=== PATIENT | female | born 1950 | race African-American/Black ===

== ENCOUNTER 2017-02-13 21:20 | Emergency (ER) | payer MEDICARE, OTHER ==
[2017-02-13] MEDS ORDERED: CYCLOBENZAPRINE HCL 10 MG TABLET PO ONE (23:59)
[2017-02-13] MEDS ORDERED: IBUPROFEN 600 MG TABLET PO ONE (23:59)
--- NOTE | 2017-02-13 23:59 | ER Document Report ---
ED Extremity Problem, Lower - General Chief Complaint: Leg Pain Stated Complaint: RIGHT LEG PAIN Time Seen by Provider: 02/13/17 23:25 Mode of Arrival: Ambulatory Information source: Patient Notes: Patient is a 66-year-old female who presents to the ER today for right-sided sciatica pain radiating down the back of her right leg. Patient says she has had sciatica before and that this feels exactly like that to her. She states that she has never had it this bad though, she denies any recent injury but states that she does have chronic low back pain from an injury in 1994. She has not been taking anything at home for the pain because she states that usually with her sciatica she is able to just walk and do exercises and that relieves it. She has never taken anything for sciatica pain. She denies any numbness or tingling. TRAVEL OUTSIDE OF THE [place] IN LAST 30 DAYS: No - Related Data Allergies/Adverse Reactions: codeine Allergy (Verified 02/13/17 22:03) Sulfa (Sulfonamide Antibiotics) Allergy (Verified 02/13/17 22:03) Past Medical History - General Information source: Patient - Social History Smoking Status: Unknown if Ever Smoked Family History: Reviewed & Not Pertinent Patient has suicidal ideation: No Patient has homicidal ideation: No Renal/ Medical History: Denies: Hx Peritoneal Dialysis Review of Systems - Review of Systems Constitutional: No symptoms reported EENT: No symptoms reported Cardiovascular: No symptoms reported Respiratory: No symptoms reported Gastrointestinal: No symptoms reported Genitourinary: No symptoms reported Female Genitourinary: No symptoms reported Musculoskeletal: See HPI Skin: No symptoms reported Hematologic/Lymphatic: No symptoms reported Neurological/Psychological: No symptoms reported Physical Exam - Vital signs Vitals: Temp Pulse Resp BP Pulse Ox 98.8 F 73 18 162/79 H 96 02/13/17 21:56 02/13/17 21:56 02/13/17 21:56 02/13/17 21:56 02/13/17 21:56 - Notes Notes: PHYSICAL EXAMINATION: GENERAL: Uncomfortable, lying on left side in the bed, in no acute distress. HEAD: Atraumatic, normocephalic. EYES: Pupils equal round and reactive to light, extraocular movements intact, sclera anicteric, conjunctiva are normal. NECK: Normal range of motion, supple without lymphadenopathy LUNGS: CTAB and equal. No wheezes rales or rhonchi. HEART: Regular rate and rhythm without murmurs ABDOMEN: Soft, no tenderness. No guarding, no rebound BACK: Right SI joint tenderness, no vertebral tenderness GI/: no CVA tenderness EXTREMITIES: Decreased range of motion at the right hip secondary to pain, no pitting edema. No cyanosis. NEUROLOGICAL: Cranial nerves grossly intact. Normal sensory/motor exams. PSYCH: Normal mood, normal affect. SKIN: Warm, Dry, normal turgor, no rashes or lesions noted Course - Re-evaluation Re-evalutation: 02/14/17 06:13 Patient [address] and has to drive home, I did order muscle relaxer for her but she will take it when she gets home. - Vital Signs Vital signs: Temp Pulse Resp BP Pulse Ox 98.1 F 72 18 158/68 H 99 02/14/17 00:14 02/14/17 00:14 02/14/17 00:14 02/14/17 00:14 02/14/17 00:14 Discharge - Discharge Clinical Impression: Sciatica, right side Condition: Stable Disposition: HOME, SELF-CARE Additional Instructions: Return immediately for any new or worsening symptoms. Follow up with primary care provider, call tomorrow to make followup appointment. Prescriptions: Cyclobenzaprine HCl [Flexeril 10 mg Tablet] 10 mg PO TIDP PRN #15 tab PRN Reason: Ibuprofen [Motrin 800 mg Tablet] 800 mg PO Q8H PRN #30 tab PRN Reason: Forms: Return to Work
[2017-02-14 00:15] VITALS: BP 158/68
== END 2017-02-14 00:15 | disposition home or self-care (01) ==
LOC: ER 21:20
DX: M54.31 Sciatica, right side (principal); Z88.2 Allergy status to sulfonamides; Z88.6 Allergy status to analgesic agent
CPT/HCPCS: 99283; A9270 ×2